=== PATIENT | female | born 2000 | race Caucasian/White ===

== ENCOUNTER 2022-04-18 10:26 | Outpatient (CLI) | payer BC ==
[~2022-04-18 10:26] MED LIST: Iopamidol 370 76% 100 ML VIAL ONE
== END 2022-04-18 10:27 | disposition home or self-care (01) ==
LOC: CSHCT 10:26
PROVIDERS: ATTEND Internal Medicine
DX: R06.00 Dyspnea, unspecified (principal)
CPT/HCPCS: 71275; Q9967